=== PATIENT | female | born 2000 | race African-American/Black ===

== ENCOUNTER 2025-08-26 12:34 | Emergency (ER) | payer MEDICAID, OTHER ==
[~2025-08-26] VITALS: Ht 172.7 cm; Wt 91.0 kg
[2025-08-26 12:47] VITALS: O2SAT 99
[2025-08-26 13:05] VITALS: BP 103/69; PULSE 77; RESP 18; TEMP 36.5; O2SAT 100
== END 2025-08-26 15:37 | disposition left against medical advice (07) ==
LOC: ER 12:51
DX: F10.129 Alcohol abuse with intoxication, unspecified (principal); Z53.21 Procedure and treatment not carried out due to patient leaving prior to being seen by health care provider; Y90.9 Presence of alcohol in blood, level not specified
CPT/HCPCS: 99281